=== PATIENT | female | born 2000 | race Hispanic/Latino ===

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

== ENCOUNTER 2020-04-09 23:24 | Emergency (ER) | payer OTHER ==
[~2020-04-09] VITALS: Ht 152.4 cm; Wt 55.0 kg
[~2020-04-09 23:24] MED LIST changes: +LOMOTIL2.5 MG PO; +PHENERGAN25 MG/TAB PO
[2020-04-09 23:50] LABS: URINE BILIRUBIN - DIPSTICK NEGATIVE (NEGATIVE); URINE BLOOD DIPSTICK NEGATIVE (NEGATIVE); URINE COLOR YELLOW; URINE GLUCOSE - DIPSTICK NEGATIVE (NEGATIVE); URINE KETONE NEGATIVE (NEGATIVE); URINE LEUK ESTERASE NEGATIVE (NEGATIVE); URINE NITRITE - DIPSTICK NEGATIVE (Negative); URINE PROTEIN - DIPSTICK NEGATIVE (NEG-TRACE); URINE UROBILINOGEN - DIPSTICK 0.2 E.U./dL (0.2)
[2020-04-09 23:54] LABS: HEMATOCRIT 41.1 % (37.0-47.0); HEMOGLOBIN 13.4 g/dl (12.0-16.0); IMMATURE GRANULOCYTES 0.4 % (0.0-5.0); MEAN CELL VOLUME 87.8 fL CALC (80.0-100.0); MEAN CORPUSCULAR HGB 28.6 pG CALC (26.0-32.0); MEAN CORPUSCULAR HGB CONC 32.6 g/dL CAL (32.0-36.0); NEUT# 6.81 thou/uL (2.00-7.15); RED BLOOD COUNT 4.68 mill/uL (4.20-5.60); RED CELL DISTRI WIDTH 12.8 % (11.5-15.5)
[2020-04-10 00:01] LABS: ALBUMIN 5.1 g/dL (3.2-5.0); ALKALINE PHOSPHATASE 80 u/l (38-126); ANION GAP 17 (6-22 (CALC)); BUN 6 mg/dL (8-21); BUN/CREATININE RATIO 9 (12-20 (CALC)); CARBON DIOXIDE 22 mmol/l (22-30); CHLORIDE 109 mmol/l (95-108); CREATININE 0.7 mg/dL (0.5-1.0); ETHYL ALCOHOL 226 mg/dl (0-30); GFR > 60 ML/MIN (>=60 (CALC)); GFR FOR AFR.AMER. > 60 ML/MIN (>=60 (CALC)); LIPASE 133 u/l (23-300); POTASSIUM 3.5 mmol/l (3.5-5.1); SGOT/AST 28 u/l (14-36); SODIUM 145 mmol/l (137-146); TOTAL PROTEIN 8.6 g/dL (6.3-8.2)
[2020-04-10 00:11] LABS: BILIRUBIN, TOTAL 0.4 mg/dL (0.0-1.4)
[2020-04-10 00:19] LABS: MYOGLOBIN 85 ng/mL (0 - 62)
[2020-04-10 00:38] LABS: INTERNATIONAL NORMALIZED RATIO 1.1 RATIO (0.7-1.3); PROTHROMBIN TIME 10.5 SECONDS (9.0-12.5)
[2020-04-10 03:52] VITALS: BP 96/52
== END 2020-04-10 03:52 | disposition home or self-care (01) ==
LOC: ED 23:24
PROVIDERS: Emergency Medicine
DX: F10.129 Alcohol abuse with intoxication, unspecified (principal); F19.10 Other psychoactive substance abuse, uncomplicated

== ENCOUNTER 2020-12-31 18:02 | Emergency (ER) | payer OTHER ==
[~2020-12-31] VITALS: Ht 152.4 cm; Wt 46.0 kg
[2020-12-31 18:21] LABS: URINE BILIRUBIN - DIPSTICK NEGATIVE (NEGATIVE); URINE BLOOD DIPSTICK NEGATIVE (NEGATIVE); URINE CLARITY CLEAR; URINE COLOR YELLOW; URINE GLUCOSE - DIPSTICK NEGATIVE (NEGATIVE); URINE KETONE NEGATIVE (NEGATIVE); URINE LEUK ESTERASE NEGATIVE (Negative); URINE NITRITE - DIPSTICK NEGATIVE (Negative); URINE PROTEIN - DIPSTICK NEGATIVE (NEG-TRACE); URINE SPECIFIC GRAVITY <=1.005; URINE UROBILINOGEN - DIPSTICK 0.2 E.U./dL (0.2)
[2020-12-31 18:26] LABS: HEMOGLOBIN 12.9 g/dl (12.0-16.0); IMMATURE GRANULOCYTES 0.2 % (0.0-5.0); MEAN CORPUSCULAR HGB 29.5 pG CALC (26.0-32.0); MEAN CORPUSCULAR HGB CONC 33.1 g/dL CAL (32.0-36.0); NEUT# 6.68 thou/uL (2.00-7.15); RED BLOOD COUNT 4.38 mill/uL (4.20-5.60); RED CELL DISTRI WIDTH 12.2 % (11.5-15.5)
[2020-12-31 18:36] LABS: ALBUMIN 4.9 g/dL (3.2-5.0); ALKALINE PHOSPHATASE 68 u/l (38-126); ANION GAP 17 (6-22 (CALC)); BUN 10 mg/dL (7-17); BUN/CREATININE RATIO 15 (12-20 (CALC)); CARBON DIOXIDE 25 mmol/l (22-30); CHLORIDE 109 mmol/l (95-108); CREATININE 0.6 mg/dL (0.5-1.0); ETHYL ALCOHOL 247 mg/dl (0-30); GFR > 60 ML/MIN (>=60 (CALC)); GFR FOR AFR.AMER. > 60 ML/MIN (>=60 (CALC)); POTASSIUM 4.1 mmol/l (3.5-5.1); SGOT/AST 25 u/l (14-36); SODIUM 147 mmol/l (137-146); TOTAL PROTEIN 8.4 g/dL (6.3-8.2)
[2020-12-31 18:38] LABS: BILIRUBIN, TOTAL 0.2 mg/dL (0.0-1.4)
[2020-12-31 18:51] VITALS: BP 110/70
== END 2020-12-31 18:53 ==
LOC: ED 18:02
DX: F10.129 Alcohol abuse with intoxication, unspecified (principal)

== ENCOUNTER 2021-02-27 20:54 | Observation (INO) | payer OTHER ==
[~2021-02-27] VITALS: Ht 152.4 cm; Wt 40.0 kg
--- NOTE | 2021-02-27 21:10 | NUR ---
AMBULATORY TO ROOM. TRIAGED AT BEDSIDE. CHANGED TO GOWN
[2021-02-27] MEDS ORDERED: NEXPLANON68 MG SC (21:32)
--- NOTE | 2021-02-27 21:35 | NUR ---
PT ALERT AND OREINTED, LEFT BREAST AREOLA ARE RED INFLAMED FIRM AND EXTREMELY PAINFUL TO TOUCH, BILATERAL NIPPLES WITH PIERCINGS PT INSTRUCTED TO REMOVE JEWELRY FOR PLANNED CT.
--- NOTE | 2021-02-27 22:14 | NUR ---
PT RESTIONG NO NEW COMPLAINTS, CALL [facility]
[2021-02-27 22:16] LABS: URINE BILIRUBIN - DIPSTICK NEGATIVE (NEGATIVE); URINE BLOOD DIPSTICK MODERATE (NEGATIVE); URINE COLOR YELLOW; URINE GLUCOSE - DIPSTICK NEGATIVE (NEGATIVE); URINE KETONE NEGATIVE (NEGATIVE); URINE LEUK ESTERASE NEGATIVE (NEGATIVE); URINE PROTEIN - DIPSTICK NEGATIVE (NEG-TRACE); URINE SPECIFIC GRAVITY >=1.030; URINE UROBILINOGEN - DIPSTICK 0.2 E.U./dL (0.2)
[2021-02-27 22:17] LABS: URINE NITRITE - DIPSTICK NEGATIVE (Negative)
[2021-02-27 22:19] LABS: HEMATOCRIT 36.4 % (37.0-47.0); HEMOGLOBIN 12.1 g/dl (12.0-16.0); IMMATURE GRANULOCYTES 0.3 % (0.0-5.0); MEAN CELL VOLUME 88.6 fL CALC (80.0-100.0); MEAN CORPUSCULAR HGB 29.4 pG CALC (26.0-32.0); MEAN CORPUSCULAR HGB CONC 33.2 g/dL CAL (32.0-36.0); NEUT# 6.23 thou/uL (2.00-7.15); RED BLOOD COUNT 4.11 mill/uL (4.20-5.60); RED CELL DISTRI WIDTH 11.8 % (11.5-15.5)
[2021-02-27 22:24] LABS: URINE SQUAMOUS EPITHELIAL CELL FEW EPI/hpf (0-FEW)
[2021-02-27 22:28] LABS: ALBUMIN 3.9 g/dL (3.2-5.0); ALKALINE PHOSPHATASE 89 u/l (38-126); ANION GAP 13 (6-22 (CALC)); BILIRUBIN, TOTAL 0.1 mg/dL (0.0-1.4); BUN 13 mg/dL (7-17); BUN/CREATININE RATIO 25 (12-20 (CALC)); CARBON DIOXIDE 25 mmol/l (22-30); CHLORIDE 107 mmol/l (95-108); CREATININE 0.5 mg/dL (0.5-1.0); GFR > 60 ML/MIN (>=60 (CALC)); GFR FOR AFR.AMER. > 60 ML/MIN (>=60 (CALC)); POTASSIUM 4.2 mmol/l (3.5-5.1); SGOT/AST 28 u/l (14-36); SODIUM 141 mmol/l (137-146); TOTAL PROTEIN 7.4 g/dL (6.3-8.2)
--- NOTE | 2021-02-27 23:02 | NUR ---
MEDICATED ORDERED FOR PAIN AWARE OF RADIOLOGY TESTING ORDERED AND APPROX WAIT TIME FOR RESULTS, MEDICATED EARLIER FOR PAIN ORDERED, WILL CONTINUE TO MONITOR.
--- NOTE | 2021-02-27 23:27 | NUR ---
MD AT BEDSIDE TO SPEAK WITH PATIENT REGARDING ADMISSION AND OR VISIT TOMORROW, PT VERBALIZES UNDERSTANDING AD AGREEANCE.
--- NOTE | 2021-02-27 23:44 | NUR ---
PT REQUESTING TO EAT MOM TO BRING FOOD FOR IMMEDIATE CONSUMPTION PT AWARRE OF NEED FOR NPO
[2021-02-28] VITALS (10 sets, daily range): BP systolic 85–101; BP diastolic 43–64
--- NOTE | 2021-02-28 00:02 | NUR ---
PT MOM AT BEDSIDE PT AWARE OF NPO AFTER MIDNIGHT
--- NOTE | 2021-02-28 00:49 | NUR ---
PT AWARE OF PENDING ADMISSION, OFFERS NO NEW COMPLAINTS NPO STATUS MAINTAINED,WILL CONTINUE TO MONITOR.
--- NOTE | 2021-02-28 01:01 | NUR ---
JULIETAAR SENT TO M/S
--- NOTE | 2021-02-28 01:53 | NUR ---
REPORT CALLED TO CALIN WYMAN ON [facility] RM [id number] ASSIGNED.
--- NOTE | 2021-02-28 01:55 | NUR ---
REPORT RECIVED FROM Chuck JOYNER RN
--- NOTE | 2021-02-28 02:25 | NUR ---
PT TRANSPORTED TO [facility] RM 277 VIA WHEELCHAIR. ALL BELONGINGS SENT WITH PATIENT.
--- NOTE | 2021-02-28 02:30 | NUR ---
PATIENT ALERT ORIENTED X3. #20 IN LEFT AC INFUSING NS AT 125ML/HR. LUNGS CLEAR BILATERALLY IN ALL LOBES, NORMAL HEART SOUNDS ASCULTATED, ACTIVE BOWEL SOUNDS, PT REPORTS LAST BM 02/27.PATIENT HAS NIPPLE PIERCINGS IN BOTH BREASTS. LEFT BREAST SWOLLEN AND TENDER TO TOUCH, RED RAISED BUMP LOCATED BETWEEN 9 AN 12 O'CLOCK. PATIENT REPORTS THAT IF SHE SQUISHES IT, PUS WILL COME OUT OF HER NIPPLE PIERCINGS, ADVISED NOT TO TOUCH. PATIENT DENIES ANY CURRENT PAIN. ORIENTED TO ROOM AND CALL SYSTEM, INSTRUCTED TO CALL IF NEEDS [facility]. CARE PLAN REVIEWED AT THIS TIME. WILL CON'T TO MONITOR.
--- NOTE | 2021-02-28 04:12 | NUR ---
PATIENT COMPLAINT OF LEFT BREAST TENDERNESS, STATES "I FEEL PRESSURE" MEDICATED PER EMAR. SEE EMAR.
--- NOTE | 2021-02-28 07:00 | NUR ---
SHIFT CHANGE REPORT, PT AWAKE ALERT AND ORIENTED, C/O ACHING STIFF PAIN @ 7/10 TO LEFT BREAST BUT STATES SHE DOESNT WANT ANY TING FOR PAIN SHE TOOK PAIN MEDS LAST NIGHT AND IT MADE HER FELT UNCOMFORTABLE, IVF INFUSING, CALL [facility] IN [place].
--- NOTE | 2021-02-28 10:49 | NUR ---
MANUELA FROM OR HERE RECEIVING PT TO TRANSPORT VIA STRETCHER OFF UNIT TO OR FOR PROCEDURE, PT ALERT AND ORIENTED AND WAS INFORMED/EDUCATED ON PROCEDURE.
--- NOTE | 2021-02-28 14:34 | NUR ---
PT RETURNED FROM PACU TRANSPORTED VIA STRETCHER BY STAFF AT 1434, ALERT AND ORIENTED, TRANSFERRED TO BED, BEDSIDE REPORT RECEIVED FROM PACU NURSE XIMENA C/O VERY MILD PAIN AT THIS TIME, DRESSING TO LEFT BREAST INTACT WITH VISIBLE DRAINAGE OVSERVED BENEATH DRESSING, VITAL SIGNS BEING MONITORED. DIRECTOR OF SCIENCE REPORTED EBL @ 10, IVF IN = 900, URINE OUT = 700 AND MEDICATION GIVEN DOCUMENTED.
--- NOTE | 2021-02-28 16:00 | NUR ---
RESTING NBED, NO C/O DISCOMFORT AT THIS TIME FAMILY MEMBER VISITING
--- NOTE | 2021-02-28 19:05 | NUR ---
REPORT RECEIVED FROM Chen CROW RN.
--- NOTE | 2021-02-28 19:30 | NUR ---
ALERT AND ORIENTED X3. PATIENT RESTING COMFORTABLY WATCHING TV. HEART SOUNDS NORMAL, LUNG SOUNDS CLEAR BILATERALLY, SKIN INTACT, MULTIPLE BODY PIERCINGS OBSERVED, CHEEK BONE, NOSE AND TONGUE. # PATIENT DENIES ANY PAIN AT THIS TIME. BANDAGE NOTED ON LEFT BREAST. SMALL AMOUNT OF SROUS SANGUINEOUS DRAINAGE NOTED ON DRESSING. PLAN OF CARE REVIEWED AT THIS TIME, CALL [facility] AND BEDSIDE [facility] WITHIN REACH
--- NOTE | 2021-02-28 21:10 | NUR ---
PATIENT RESTING COMFORTABLY WATCHING TV, CALL LIGHT AND BEDSIDE TABLE WITHIN REACH
[2021-03-01 01:02] VITALS: BP 100/65
--- NOTE | 2021-03-01 01:20 | NUR ---
PATIENT COMPLAINT OF PAIN, ADMINISTERED MEDICATIONS ACCORDING TO EMAR, SEE EMAR.
[2021-03-01 04:00] VITALS: BP 88/51
--- NOTE | 2021-03-01 04:55 | NUR ---
PATIENT UP TO THE RESTROOM AT THIS TIME.
[2021-03-01 05:02] VITALS: BP 100/64
[2021-03-01 05:23] VITALS: BP 92/59
--- NOTE | 2021-03-01 08:06 | NUR ---
SHIFT CHANGE REPORT, PT AWAKE ALERT AND ORIENTED HAVING MEAL AT THIS TIME, REPORTS PAIN TO LEFT BREAST @ 4/10 AND NAUSEATED AT THIS TIME, NAUSEA CONCERN ADDRESSED, IVF INFUSING, CALL [facility] IN REACH AND BED LOCKED IN LOWEST POSITION.
[2021-03-01] MEDS ORDERED: PERCOCET 5/325M1 TAB PO (08:48)
[2021-03-01 09:00] VITALS: BP 92/60
--- NOTE | 2021-03-01 09:00 | NUR ---
DR RAINEY ROUNDED, REMOVED OLD DRESSING, NURSE WENT IN ROOM, CLEANED WUND WITH 0.9 NS AND APPLIED NEW DSD AND SECURED WITH PAPER TAPE INSTRUCTED BY DR RAINEY.
--- NOTE | 2021-03-01 12:15 | NUR ---
Discharge instructions given. Patient verbalizes understanding of same. Discharged in fair condition via Wheelchair to Home with family. All belongings sent with pt.
== END 2021-03-01 11:18 | disposition home or self-care (01) ==
LOC: ED 20:54 → ED-I 23:17 → ED 23:38 → MS2 23:39
PROVIDERS: Emergency Medicine; ADMIT Surgery; ATTEND Surgery
DX: N61.1 Abscess of the breast and nipple (principal); B95.4 Other streptococcus as the cause of diseases classified elsewhere; Z20.822 Contact with and (suspected) exposure to COVID-19
CPT/HCPCS: G0378; J0131; Q9967

== ENCOUNTER 2021-04-02 21:24 | Emergency (ER) | payer OTHER ==
[~2021-04-02] VITALS: Ht 152.4 cm; Wt 40.0 kg
[~2021-04-02 21:24] MED LIST changes: +NEXPLANON68 MG SC; +PERCOCET 5/325M1 TAB PO
[2021-04-03] MEDS ORDERED: STERAPRED DS10 MG PO (00:44)
[2021-04-03 03:23] VITALS: BP 112/70
== END 2021-04-03 03:25 | disposition home or self-care (01) ==
LOC: ED 21:24
DX: L25.9 Unspecified contact dermatitis, unspecified cause (principal)

== ENCOUNTER 2021-07-27 03:02 | Emergency (ER) | payer OTHER ==
[~2021-07-27] VITALS: Ht 152.4 cm; Wt 44.5 kg
[~2021-07-27 03:02] MED LIST changes: +STERAPRED DS10 MG PO
[2021-07-27 03:30] VITALS: BP 106/45
[2021-07-28] MEDS ORDERED: DOXYCYCLINE100 MG PO (12:04)
== END 2021-07-27 03:40 | disposition home or self-care (01) ==
LOC: ED 03:02
DX: S01.81XA Laceration without foreign body of other part of head, initial encounter (principal); W22.09XA Striking against other stationary object, initial encounter; Y92.89 Other specified places as the place of occurrence of the external cause

== ENCOUNTER 2021-07-28 11:17 | Emergency (ER) | payer OTHER ==
[~2021-07-28] VITALS: Ht 152.4 cm; Wt 44.5 kg
[2021-07-28] MEDS ORDERED: DOXYCYCLINE100 MG PO (12:04)
[2021-07-28 12:23] VITALS: BP 112/72
== END 2021-07-28 12:23 | disposition home or self-care (01) ==
LOC: ED 11:17
DX: S01.81XD Laceration without foreign body of other part of head, subsequent encounter (principal); X58.XXXD Exposure to other specified factors, subsequent encounter

== ENCOUNTER 2024-03-01 16:20 | Emergency (ER) | payer SELFPAY ==
[2024-03-01] VITALS (9 sets, daily range): BP systolic 94–115; BP diastolic 57–81
[~2024-03-01] VITALS: Ht 152.4 cm; Wt 40.6 kg
[~2024-03-01 16:20] MED LIST changes: +DOXYCYCLINE100 MG PO; +IBUPROFEN600 MG PO; +ZOFRAN4 MG/TAB PO
[2024-03-01] MEDS ORDERED: KETOROLAC TROMETHAMINE 30 MG/ML SDV IM ONE ×2 (16:50)
[2024-03-01] MEDS ORDERED: METHOCARBAMOL 500 MG/TAB PO ONE (16:50)
[2024-03-01] MEDS ORDERED: FLEXERIL5 M1 PO (19:43)
[2024-03-01] MEDS ORDERED: DEXAMETHASONE 2 MG/TAB TAB PO ONE (19:45)
== END 2024-03-01 21:00 | disposition home or self-care (01) | DRG 563 ==
LOC: ED 16:20
DX: S29.012A Strain of muscle and tendon of back wall of thorax, initial encounter (principal); S39.012A Strain of muscle, fascia and tendon of lower back, initial encounter; W17.89XA Other fall from one level to another, initial encounter

== ENCOUNTER 2024-03-08 17:20 | Emergency (ER) | payer SELFPAY ==
[~2024-03-08] VITALS: Ht 152.4 cm; Wt 41.0 kg
[~2024-03-08 17:20] MED LIST changes: +FLEXERIL5 M1 PO
[2024-03-08 17:26] VITALS: BP 114/74
[2024-03-08 17:31] VITALS: BP 98/74
[2024-03-08 18:30] VITALS: BP 107/74
[2024-03-08 19:00] VITALS: BP 107/71
[2024-03-08 19:56] VITALS: BP 107/71
== END 2024-03-08 20:00 | disposition home or self-care (01) | DRG 395 ==
LOC: ED 17:20
DX: T18.4XXA Foreign body in colon, initial encounter (principal); W44.E4XA Non-magnetic metal jewelry entering into or through a natural orifice, initial encounter